=== PATIENT | male | born 2000 | race Caucasian/White ===

== ENCOUNTER 2021-06-07 19:27 | Emergency (ER) | payer MEDICAID ==
[~2021-06-07] VITALS: Ht 170.2 cm; Wt 68.0 kg
[2021-06-07 19:27] VITALS: BP 128/86
[2021-06-07] MEDS ORDERED: KETOROLAC 30 MG/ML VIAL IM ONE (19:50)
[2021-06-07] MEDS ORDERED: diazePAM 5 MG TAB PO ONE (19:50)
[2021-06-07] MEDS ORDERED: HYDROcodone/APAP 5/325 MG 1 TAB TAB PO ONE (19:50)
[2021-06-07] MEDS ORDERED: METH-1681 PO (21:10)
[2021-06-07] MEDS ORDERED: IBUP-2213 PO (21:10)
[2021-06-07 21:24] VITALS: BP 128/86
== END 2021-06-07 21:24 | disposition home or self-care (01) ==
LOC: MED 19:27
DX: M54.31 Sciatica, right side (principal)
CPT/HCPCS: 96372; 99283; J1885